=== PATIENT | female | born 1965 | race Caucasian/White ===

== ENCOUNTER → 2018-01-02 | Outpatient (REF) | payer MEDICARE, MEDICAID | LOC: M SFHCLERA 16:17 | DX: R35.0 Frequency of micturition (principal) | CPT/HCPCS: 87086 ==

== ENCOUNTER → 2018-02-21 | Outpatient (REF) | payer MEDICARE, MEDICAID ==
[2018-02-21 21:47] LABS: ESTIMATED AVERAGE GLUCOSE 111 MG/DL (60-110); HEMOGLOBIN A1c 5.5 %
== END ==
LOC: M LAB REF 20:12
DX: Z13.1 Encounter for screening for diabetes mellitus (principal); I10 Essential (primary) hypertension; M79.7 Fibromyalgia; Z79.899 Other long term (current) drug therapy; Z23 Encounter for immunization
CPT/HCPCS: 83036

== ENCOUNTER 2018-04-04 10:18 | Day surgery (SDC) | payer MEDICARE, MEDICAID ==
[2018-04-04] MEDS: NS 1,000 ML IV (10:45)
[2018-04-04] MEDS ORDERED: PROPOFOL 200 MG/20 ML VIAL As Ordered ×2 (10:59→12:03)
[2018-04-04] MEDS ORDERED: LIDOCAINE 2% INJ 100 MG/5 ML SDV (FOR ANES.) As Ordered (10:59)
== END 2018-04-04 12:40 | disposition home or self-care (01) ==
LOC: M OPP 10:18
DX: Z12.11 Encounter for screening for malignant neoplasm of colon (principal); K64.0 First degree hemorrhoids; K57.30 Diverticulosis of large intestine without perforation or abscess without bleeding; D12.8 Benign neoplasm of rectum; D12.5 Benign neoplasm of sigmoid colon; I10 Essential (primary) hypertension; E78.5 Hyperlipidemia, unspecified; M19.90 Unspecified osteoarthritis, unspecified site; F41.9 Anxiety disorder, unspecified; Z80.0 Family history of malignant neoplasm of digestive organs; Z79.899 Other long term (current) drug therapy; Z87.891 Personal history of nicotine dependence; Z88.1 Allergy status to other antibiotic agents; Z88.2 Allergy status to sulfonamides
CPT/HCPCS: 45385

== ENCOUNTER → 2018-06-30 | Outpatient (CLI) | payer MEDICARE, MEDICAID ==
[~2018-06-30] MED LIST: *MAYHAVE; /ACETCOD3T; ADVAIR100 INHALATION; AMLO5TAB6 PO; ASTELIN NASAL; BENA10TA6 PO; BUSPAR15 PO; CLARITIN10 PO; CYMBALTA30 PO; EFFEXORXL1 PO; FLAGYL500 PO; FLEXERIL10 PO; LIDODERM TOPICAL; LYRICA25 PO; MACROBID PO; MELA5TAB20 PO; MULTCAP PO; NASONEX; NASONEX NASAL; SUDAFED30 PO; TRAZODON10 PO; TRAZODON15 PO; VICO5TAB; VITA100066 PO; ZOCO40TA; ZOCOR40 PO; [UNRECOGNIZED DRUG - OTHER] TOPICAL; [UNRECOGNIZED DRUG - OTHER] VAGINAL
--- NOTE | 2018-07-02 11:51 | REP ---
MRI LEFT ANKLE WITHOUT CONTRAST: 06/30/2018. COMPARISON: X-ray ankle and foot 06/06/2018. CLINICAL HISTORY: Rule out Haney's neuropathy. A prior history of melanoma right thigh. TECHNIQUE: Coronal fat suppressed T2, axial T1 with fat suppressed T2 and sagittal T1 with T2 STIR sequences provided. FINDINGS: The course of the inferior calcaneal nerve is followed medial to laterally between the abductor hallicis muscle and medial calcaneal tuberosity. The muscle signal of the abductor digiti minimi muscle as well as that of the flexor digitorum brevis and quadratus plantae muscles is normal throughout. Flexor hallucis muscle signal also normal on T2 and T1 sequences. No atrophy or hyperintense signal changes. The other muscles about the ankle and hind foot were unremarkable. Some minor increased signal in the posterior inferior calcaneus near the plantar fascia insertion. I do not see significant edema or fluid collection along the plantar fascia with only minimal evidence for plantar fasciitis. No marrow signal abnormality in the calcaneus and talus. Mortise joint was symmetric and preserved. There are two screws in the distal fibula with magnetic susceptibility artifact limiting evaluation. The signal of the distal fibula. There is no avulsion at the distal lateral malleolus. The PT, FDL, FHL, PB/PL, AT, EDL EHL tendons along with the Achilles tendon are all without any acute signal abnormality. The anterior tibiofibular, anterior talofibular, posterior talofibular ligaments are intact. Calcaneofibular ligament shows some strain. Deltoid ligament intact. IMPRESSION: 1. I do not see any muscular signal abnormality to suggest Haney neuropathy. 2. There is minimal plantar fasciitis with some minor signal changes near the insertion and slight edema in the bone adjacent to the plantar fascial insertion but no significant fluid collection. 3. No bone bruise or fracture. The tendons about the ankle and ligaments are all grossly intact except for some mild strain of the calcaneofibular ligament. Electronically Signed by El Harris MD 07/04/2018 11:00 A
== END ==
LOC: M RAD 16:51
PROVIDERS: ATTEND Orthopaedic Surgery Sports Medicine
DX: M19.072 Primary osteoarthritis, left ankle and foot (principal)

== ENCOUNTER → 2018-08-02 | Outpatient (REF) | payer MEDICARE, MEDICAID ==
[2018-08-02 18:59] LABS: BASO # 0.1 10^3/uL (0.0-0.2); BASO % 0.9 % (0.0-1.0); EOS # 0.1 10^3/uL (0.0-0.50); EOS % 0.6 % (0.0-3.0); HEMATOCRIT 43.9 % (36.0-47.0); HEMOGLOBIN 14.6 g/dl (12.0-15.5); LYMPH # 2.7 10^3/uL (1.5-4.5); LYMPH % 29.2 % (24.0-44.0); MEAN CORPUSCULAR HEMOGLOBIN 30.4 pg (27.0-33.0); MEAN CORPUSCULAR HGB CONC 33.3 g/dl (32.0-36.5); MEAN CORPUSCULAR VOLUME 91.3 fl (80.0-96.0); MONO % 10.4 % (0.0-5.0); NEUTROPHILS # 5.5 10^3/uL (1.8-7.7); NEUTROPHILS % 58.6 % (36.0-66.0); PLATELET COUNT, AUTOMATED 336 10^3/uL (150-450); RED BLOOD COUNT 4.81 10^6/uL (4.00-5.40); WHITE BLOOD COUNT 9.3 10^3/uL (4.0-10.0)
[2018-08-02 19:16] LABS: HEMOGLOBIN A1c 5.7 %
[2018-08-02 19:26] LABS: ALBUMIN 4.1 GM/DL (3.2-5.2); ALT/SGPT 41 U/L (12-78); BILIRUBIN,TOTAL 0.7 MG/DL (0.2-1.0); BLOOD UREA NITROGEN 12 MG/DL (7-18); CALCIUM LEVEL 9.3 MG/DL (8.5-10.1); CARBON DIOXIDE LEVEL 27 MEQ/L (21-32); CHLORIDE LEVEL 102 MEQ/L (98-107); CHOLESTEROL LEVEL 260 MG/DL (<200); CREATININE FOR GFR 0.74 MG/DL (0.55-1.30); FOLATE 10.8 NG/ML; FREE T4 0.95 NG/DL (0.76-1.46); GLOMERULAR FILTRATION RATE > 60.0 (>51); GLUCOSE, FASTING 76 MG/DL (70-100); HDL CHOLESTEROL 42 MG/DL (>40); MAGNESIUM LEVEL 2.2 MG/DL (1.8-2.4); NON-HDL-C 218 MG/DL; PHOSPHORUS LEVEL 3.7 MG/DL (2.5-4.9); POTASSIUM SERUM 4.2 MEQ/L (3.5-5.1); SODIUM LEVEL 138 MEQ/L (136-145); TOTAL PROTEIN 7.5 GM/DL (6.4-8.2); TRIGLYCERIDES LEVEL 513 MG/DL (<150); VITAMIN B12 LEVEL 506 PG/ML
[2018-08-03 10:55] LABS: HEPATITIS B SURFACE ANTIGEN NEGATIVE (NEGATIVE)
[2018-08-03 11:20] LABS: HEPATITIS C VIRUS ABY INDEX 0.3 INDEX (<0.8)
[2018-08-03 11:21] LABS: HEPATITIS B CORE ANTIBODY IGM NEGATIVE (NEGATIVE)
[2018-08-03 11:23] LABS: HEPATITIS A ANTIBODY IGM NEGATIVE (NEGATIVE)
== END ==
LOC: M SFHCLERA 14:01
PROVIDERS: ATTEND Family Medicine
DX: R94.5 Abnormal results of liver function studies (principal); I10 Essential (primary) hypertension; F10.20 Alcohol dependence, uncomplicated; M25.432 Effusion, left wrist; F41.8 Other specified anxiety disorders; Z85.820 Personal history of malignant melanoma of skin

== ENCOUNTER → 2018-08-03 | Outpatient (REF) | payer MEDICARE, MEDICAID ==
[~2018-08-03] MED LIST changes: -/ACETCOD3T; +ACET1TAB16
[2018-08-03 20:57] LABS: ETHYL ALCOHOL (ETHANOL) < 0.003 % (0.000-0.010)
[2018-08-03 21:09] LABS: TOTAL 25(OH) VITAMIN D 18.7 NG/ML (30.0-100.0)
[2018-08-05 08:20] LABS: LDL DIRECT 175 mg/dL (0-99)
== END ==
LOC: M SFHCLERA 16:51
PROVIDERS: ATTEND Family Medicine
DX: F10.20 Alcohol dependence, uncomplicated (principal); E78.5 Hyperlipidemia, unspecified; E55.9 Vitamin D deficiency, unspecified; E66.9 Obesity, unspecified; Z68.36 Body mass index [BMI] 36.0-36.9, adult
CPT/HCPCS: 82306; 83721; G0463; G0480

== ENCOUNTER → 2018-08-16 | Outpatient (CLI) | payer MEDICARE, MEDICAID ==
--- NOTE | 2018-08-16 10:00 | REP ---
Abdominal right upper quadrant ultrasound for elevated liver function tests: Comparison is 05/13/2010. There is no cholelithiasis, gallbladder wall thickening or pericholecystic fluid. There is no intrahepatic or extrahepatic biliary duct dilatation. The common biliary duct measures 6.1 mm in diameter. The hepatic parenchyma demonstrates mild to moderate echogenicity compatible with hepato steatosis. There are no hepatic masses. The visualized hepatic parenchyma is unremarkable. The right kidney measures 11.7 x 6.0 x 5.8 cm and is normal size. There is no right renal calculus or hydronephrosis. There is no right renal solid or cystic mass. The visualized upper abdominal aorta is unremarkable. There is no right upper quadrant ascites. Impression: Hepato steatosis. There are no hepatic masses. Otherwise, essentially negative abdominal right upper quadrant ultrasound. Electronically Signed by Khurram Parekh MD 08/16/2018 09:51 A
--- NOTE | 2018-08-16 11:44 | REP ---
Soft tissue ultrasound of the dorsal left wrist for a palpable lump: There is no focal cyst or fluid collection in the area of the palpable lump of the left wrist dorsally. There is a thickened muscle measuring approximate 5-6 cm in length. There appears to represent the palpable lump. Ultrasonography of the right wrist identifies a similar muscle that is not quite as thickened. Impression: The palpable lump corresponds to a a muscle in the distal dorsal left forearm and wrist. There is no focal fluid collection, cyst or mass. Electronically Signed by Khurram Parekh MD 08/16/2018 11:35 A
== END ==
LOC: M RAD 08:48
PROVIDERS: ATTEND Family Medicine
DX: M25.432 Effusion, left wrist (principal)

== ENCOUNTER → 2018-09-13 | Outpatient (REF) | payer MEDICARE, MEDICAID | LOC: M SFHCLERA 13:21 | PROVIDERS: ATTEND Family Medicine | DX: R30.0 Dysuria (principal) ==

== ENCOUNTER → 2023-07-19 | Outpatient (CLI) | payer OTHER, MEDICAID ==
[~2023-07-19] MED LIST changes: +AMLO1TAB24 PO; -AMLO5TAB6 PO; -BENA10TA6 PO; +BENA1TAB24 PO; +THERTAB52 PO; +VITA100093 PO
[2023-07-19 14:32] LABS: BASO # 0.1 10^3/uL (0.0-0.2); BASO % 1.2 % (0.0-1.0); EOS # 0.1 10^3/uL (0.0-0.5); EOS % 1.4 % (0.0-3.0); HEMATOCRIT 44.4 % (36.0-47.0); HEMOGLOBIN 15.1 g/dl (12.0-15.5); LYMPH % 38.6 % (24.0-44.0); MEAN CORPUSCULAR HEMOGLOBIN 31.3 pg (27.0-33.0); MEAN CORPUSCULAR VOLUME 92.1 fl (80.0-96.0); MONO # 0.9 10^3/uL (0.0-0.8); MONO % 10.9 % (2.0-8.0); NEUTROPHILS # 3.7 10^3/uL (1.5-8.5); NEUTROPHILS % 47.6 % (36.0-66.0); PLATELET COUNT, AUTOMATED 275 10^3/uL (150-450); RED BLOOD COUNT 4.82 10^6/uL (4.00-5.40); WHITE BLOOD COUNT 7.8 10^3/uL (4.0-10.0)
[2023-07-19 14:57] LABS: HEMOGLOBIN A1c 5.4 % (4.0-6.0)
[2023-07-19 15:07] LABS: ALBUMIN 3.8 G/DL (3.2-5.2); ALKALINE PHOSPHATASE 67 U/L (46-116); ALT/SGPT 25 U/L (7.0-40); AST/SGOT 14 U/L (<34); BILIRUBIN,TOTAL 1.1 MG/DL (0.3-1.2); BLOOD UREA NITROGEN 17 MG/DL (9-23); CALCIUM LEVEL 9.3 MG/DL (8.3-10.6); CARBON DIOXIDE LEVEL 27 MMOL/L (20-31); CHLORIDE LEVEL 104 MMOL/L (98-107); CHOLESTEROL LEVEL 231 MG/DL (<200); CHOLESTEROL RISK RATIO 4.21 (<5); CREATININE FOR GFR 0.74 MG/DL (0.55-1.30); FREE T4 0.94 NG/DL (0.89-1.76); GLOMERULAR FILTRATION RATE > 60.0 (>45); GLUCOSE, FASTING 91 MG/DL (74-106); HDL CHOLESTEROL 54.8 MG/DL (>40); LDL CHOLESTEROL 139.2 MG/DL (<100); NON-HDL-C 176.2 MG/DL; POTASSIUM SERUM 4.3 MMOL/L (3.5-5.1); SODIUM LEVEL 138 MMOL/L (136-145); THYROID STIMULATING HORMONE 2.642 uIU/ML (0.55-4.78); TOTAL PROTEIN 6.8 G/DL (5.7-8.2); TRIGLYCERIDES LEVEL 185 MG/DL (<150)
[2023-07-19 15:08] LABS: TOTAL 25(OH) VITAMIN D 29.4 NG/ML (20.0-100.0)
[2023-07-19 15:09] LABS: FOLATE > 24.0 NG/ML (>5.4); VITAMIN B12 LEVEL 439 PG/ML (211-911)
== END ==
LOC: M LAB 13:50
PROVIDERS: ATTEND Physician Assistant
DX: F10.10 Alcohol abuse, uncomplicated (principal); E78.00 Pure hypercholesterolemia, unspecified

== ENCOUNTER → 2023-08-26 | Outpatient (CLI) | payer OTHER, MEDICAID | LOC: M WHC 13:53 | PROVIDERS: ATTEND Physician Assistant | DX: Z12.31 Encounter for screening mammogram for malignant neoplasm of breast (principal) ==

== ENCOUNTER 2023-12-22 11:19 | Day surgery (SDC) | payer OTHER, MEDICAID ==
[~2023-12-22] VITALS: Ht 167.6 cm; Wt 102.4 kg
[~2023-12-22 11:19] MED LIST changes: +ROSU5TAB40 PO
[2023-12-22] MEDS: NS 1,000 ML IV ONE (11:42)
[2023-12-22] MEDS ORDERED: propofoL 200 MG/20 ML VIAL As Ordered ONE (12:13)
[2023-12-22 13:17] VITALS: BP 133/74; O2SAT 96
== END 2023-12-22 13:18 | disposition home or self-care (01) ==
LOC: M OPP 11:19
PROVIDERS: ATTEND Internal Medicine Gastroenterology
DX: Z86.010 Personal history of colon polyps (principal); Z80.0 Family history of malignant neoplasm of digestive organs; D12.6 Benign neoplasm of colon, unspecified; K64.0 First degree hemorrhoids; Z79.02 Long term (current) use of antithrombotics/antiplatelets; Z79.899 Other long term (current) drug therapy; Z88.2 Allergy status to sulfonamides

== ENCOUNTER → 2024-03-09 | Outpatient (REF) | payer OTHER, MEDICAID ==
[2024-03-09 18:40] LABS: ALBUMIN 3.7 G/DL (3.2-5.2); ALKALINE PHOSPHATASE 76 U/L (35-104); ALT/SGPT 28 U/L (7.0-40); AST/SGOT 14 U/L (<34); BILIRUBIN,TOTAL 0.6 MG/DL (0.3-1.2); BLOOD UREA NITROGEN 14 MG/DL (9-23); CALCIUM LEVEL 9.8 MG/DL (8.3-10.6); CARBON DIOXIDE LEVEL 26 MMOL/L (20-31); CHLORIDE LEVEL 109 MMOL/L (98-107); CHOLESTEROL LEVEL 196 MG/DL (<200); CHOLESTEROL RISK RATIO 3.55 (<5); CREATININE FOR GFR 0.74 MG/DL (0.55-1.30); GLOMERULAR FILTRATION RATE > 60.0 (>45); GLUCOSE, FASTING 92 MG/DL (74-106); HDL CHOLESTEROL 55.1 MG/DL (>40); LDL CHOLESTEROL 105.1 MG/DL (<100); NON-HDL-C 140.9 MG/DL; POTASSIUM SERUM 4.5 MMOL/L (3.5-5.1); SODIUM LEVEL 140 MMOL/L (136-145); TRIGLYCERIDES LEVEL 179 MG/DL (<150)
[2024-03-09 18:53] LABS: HEMOGLOBIN A1c 5.6 % (4.0-6.0)
== END ==
LOC: M SFHCLERA 09:31
DX: R73.02 Impaired glucose tolerance (oral) (principal); E55.9 Vitamin D deficiency, unspecified; E78.2 Mixed hyperlipidemia

== ENCOUNTER → 2024-09-12 | Outpatient (CLI) | payer OTHER, MEDICAID ==
[~2024-09-12] MED LIST changes: -ROSU5TAB40 PO; +ROSU5TAB49 PO
== END ==
LOC: M WUC 12:33
DX: R05.3 Chronic cough (principal)

== ENCOUNTER → 2024-12-07 | Outpatient (CLI) | payer OTHER, MEDICAID ==
[~2024-12-07] MED LIST changes: +LOSA50TA28 PO
== END ==
LOC: M CARPUL 09:40
PROVIDERS: ATTEND Physician Assistant
DX: R06.02 Shortness of breath (principal)

== ENCOUNTER → 2024-12-19 | Outpatient (CLI) | payer OTHER, MEDICAID ==
[~2024-12-19] MED LIST changes: +METHACHOLINE KIT (6 VIAL.NEB PREMIX) INH ONE
== END ==
LOC: M CARPUL 09:42
PROVIDERS: ATTEND Physician Assistant
DX: R06.02 Shortness of breath (principal)
CPT/HCPCS: 94070; 95070; J7674

== ENCOUNTER 2025-01-04 11:00 | Day surgery (SDC) | payer OTHER, MEDICAID ==
[~2025-01-04] VITALS: Ht 167.6 cm; Wt 104.2 kg
[~2025-01-04 11:00] MED LIST changes: -METHACHOLINE KIT (6 VIAL.NEB PREMIX) INH ONE
[2025-01-04] MEDS ORDERED: CETACAINE SPRAY 5 GM As Ordered ONE (13:03)
[2025-01-04 13:41] VITALS: BP 145/74; O2SAT 97
== END 2025-01-04 13:52 | disposition home or self-care (01) ==
LOC: M OPP 11:00
PROVIDERS: ATTEND Surgery
DX: K44.9 Diaphragmatic hernia without obstruction or gangrene (principal); K21.00 Gastro-esophageal reflux disease with esophagitis, without bleeding; K22.2 Esophageal obstruction; R13.10 Dysphagia, unspecified; Z88.2 Allergy status to sulfonamides; Z91.048 Other nonmedicinal substance allergy status; Z79.899 Other long term (current) drug therapy
CPT/HCPCS: 43239; 88305; J3010

== ENCOUNTER → 2025-02-06 | Outpatient (REF) | payer OTHER, MEDICAID ==
[2025-02-06 18:31] LABS: BASO # 0.1 10^3/uL (0.0-0.2); BASO % 0.9 % (0.0-1.0); EOS # 0.1 10^3/uL (0.0-0.5); EOS % 1.2 % (0.0-3.0); LYMPH # 2.5 10^3/uL (1.5-5.0); LYMPH % 33.0 % (24.0-44.0); MONO # 0.8 10^3/uL (0.0-0.8); MONO % 10.1 % (2.0-8.0); NEUTROPHILS # 4.2 10^3/uL (1.5-8.5); NEUTROPHILS % 54.5 % (36.0-66.0); PLATELET COUNT, AUTOMATED 297 10^3/uL (150-450)
[2025-02-06 18:53] LABS: ESTIMATED AVERAGE GLUCOSE 111.0 MG/DL (60-110)
[2025-02-06 19:05] LABS: ALT/SGPT 27.0 U/L (7.0-40); AST/SGOT 21.0 U/L (<34); CALCIUM LEVEL 9.3 MG/DL (8.3-10.6); CARBON DIOXIDE LEVEL 28.0 MMOL/L (20-31); CHLORIDE LEVEL 103.0 MMOL/L (98-107); CHOLESTEROL LEVEL 196.0 MG/DL (<200); CHOLESTEROL RISK RATIO 3.6 (<5); CREATININE FOR GFR 0.82 MG/DL (0.55-1.30); GLOMERULAR FILTRATION RATE 81.3 (>45); LDL CHOLESTEROL 109.3 MG/DL (<100); NON-HDL-C 141.7 MG/DL; POTASSIUM SERUM 4.3 MMOL/L (3.5-5.1); SODIUM LEVEL 136.0 MMOL/L (136-145); TRIGLYCERIDES LEVEL 162.0 MG/DL (<150)
[2025-02-06 19:06] LABS: TOTAL 25(OH) VITAMIN D 42.0 NG/ML (20.0-100.0)
== END ==
LOC: M SFHCLERA 11:33
DX: F10.10 Alcohol abuse, uncomplicated (principal); E78.2 Mixed hyperlipidemia; I10 Essential (primary) hypertension; E55.9 Vitamin D deficiency, unspecified; Z79.899 Other long term (current) drug therapy

== ENCOUNTER → 2025-02-26 | Outpatient (REF) | payer OTHER, MEDICAID ==
[~2025-02-26] MED LIST changes: +ARNU1INH; +FAMO40TA3 PO; +GABA-284 PO
[2025-02-26 18:04] LABS: BASO # 0.1 10^3/uL (0.0-0.2); BASO % 1.0 % (0.0-1.0); EOS # 0.1 10^3/uL (0.0-0.5); EOS % 0.8 % (0.0-3.0); LYMPH # 2.4 10^3/uL (1.5-5.0); LYMPH % 33.0 % (24.0-44.0); MONO # 0.8 10^3/uL (0.0-0.8); MONO % 11.3 % (2.0-8.0); NEUTROPHILS # 3.9 10^3/uL (1.5-8.5); NEUTROPHILS % 53.8 % (36.0-66.0); PLATELET COUNT, AUTOMATED 304 10^3/uL (150-450)
[2025-02-26 18:22] LABS: ALT/SGPT 35 U/L (7.0-40); AST/SGOT 27 U/L (<34); CALCIUM LEVEL 10.0 MG/DL (8.3-10.6); CARBON DIOXIDE LEVEL 29 MMOL/L (20-31); CHLORIDE LEVEL 104 MMOL/L (98-107); CREATININE FOR GFR 0.81 MG/DL (0.55-1.30); GLOMERULAR FILTRATION RATE 82.5 (>45); IRON (FE) 85 UG/DL (50-170); PERCENT SATURATION 25.6 % (13.2-45.0); POTASSIUM SERUM 4.7 MMOL/L (3.5-5.1); SODIUM LEVEL 142 MMOL/L (136-145); VITAMIN B12 LEVEL 627 PG/ML (211-911)
[2025-02-26 18:23] LABS: FREE T4 1.18 NG/DL (0.89-1.76)
== END ==
LOC: M SFHCLERA 11:17
PROVIDERS: ATTEND Family Medicine
DX: Z01.818 Encounter for other preprocedural examination (principal); M79.671 Pain in right foot; M79.672 Pain in left foot; G62.9 Polyneuropathy, unspecified; Z79.899 Other long term (current) drug therapy

== ENCOUNTER 2025-03-05 08:42 | Day surgery (SDC) | payer OTHER, MEDICAID ==
[~2025-03-05] VITALS: Ht 167.6 cm; Wt 102.1 kg
[~2025-03-05 08:42] MED LIST changes: +LR 1,000 ML IV SCH; +MIDAZOLAM INJ 2 MG/2 ML VIAL As Ordered ONE
[2025-03-05] MEDS: PHENYLEPHRINE 2.5% OPHTH SOL 2ML OS SCH (09:30)
[2025-03-05] MEDS: TETRACAINE 0.5% OPHTH SOLN 4ML OS SCH (09:30)
[2025-03-05] MEDS: FLURBIPROFEN 0.03% OPHTH SOLN 2.5 ML OS SCH (09:30)
[2025-03-05] MEDS: CYCLOPENTOLATE 1% OPHTH SOLN 2 ML BTL OS SCH (09:30)
[2025-03-05] MEDS: CEFUROXIME 1 MG/0.1 ML INTRACAMERAL INJ As Ordered ONE (10:56)
[2025-03-05] MEDS: LIDOCAINE 1% SDV 5 ML VIAL As Ordered ONE (10:56)
[2025-03-05 11:14] VITALS: BP 119/82; TEMP 96.9; O2SAT 96
== END 2025-03-05 11:28 | disposition home or self-care (01) ==
LOC: M SDC 08:42
PROVIDERS: ATTEND Ophthalmology
DX: H25.12 Age-related nuclear cataract, left eye (principal); I10 Essential (primary) hypertension; E78.00 Pure hypercholesterolemia, unspecified; K21.9 Gastro-esophageal reflux disease without esophagitis; J45.909 Unspecified asthma, uncomplicated; Z79.899 Other long term (current) drug therapy; Z79.51 Long term (current) use of inhaled steroids; Z88.2 Allergy status to sulfonamides; Z85.820 Personal history of malignant melanoma of skin; G62.9 Polyneuropathy, unspecified
CPT/HCPCS: 66984; J0697; J2250; J3010; V2632

== ENCOUNTER 2025-05-07 09:06 | Day surgery (SDC) | payer OTHER, MEDICAID ==
[~2025-05-07] VITALS: Ht 167.6 cm; Wt 101.6 kg
[~2025-05-07 09:06] MED LIST changes: -ARNU1INH; +ARNU1INH INH; -MIDAZOLAM INJ 2 MG/2 ML VIAL As Ordered ONE
[2025-05-07] MEDS ORDERED: MIDAZOLAM INJ 2 MG/2 ML VIAL As Ordered ONE (09:22)
[2025-05-07] MEDS: FLURBIPROFEN 0.03% OPHTH SOLN 2.5 ML OD SCH (10:14)
[2025-05-07] MEDS: CYCLOPENTOLATE 1% OPHTH SOLN 2 ML BTL OD SCH (10:14)
[2025-05-07] MEDS: PHENYLEPHRINE 2.5% OPHTH SOL 2ML OD SCH (10:14)
[2025-05-07] MEDS: TETRACAINE 0.5% OPHTH SOLN 4ML OD SCH (10:14)
[2025-05-07] MEDS: CEFUROXIME 1 MG/0.1 ML INTRACAMERAL INJ As Ordered ONE (12:05)
[2025-05-07] MEDS: LIDOCAINE 1% SDV 5 ML VIAL As Ordered ONE (12:05)
[2025-05-07 12:14] VITALS: BP 149/79; TEMP 97.3; O2SAT 96
== END 2025-05-07 12:30 | disposition home or self-care (01) ==
LOC: M SDC 09:06
PROVIDERS: ATTEND Ophthalmology
DX: H25.11 Age-related nuclear cataract, right eye (principal); I10 Essential (primary) hypertension; J45.909 Unspecified asthma, uncomplicated; E78.00 Pure hypercholesterolemia, unspecified; Z79.899 Other long term (current) drug therapy; Z79.51 Long term (current) use of inhaled steroids; Z85.828 Personal history of other malignant neoplasm of skin; Z85.820 Personal history of malignant melanoma of skin; Z90.710 Acquired absence of both cervix and uterus; Z98.42 Cataract extraction status, left eye; Z98.51 Tubal ligation status; Z88.2 Allergy status to sulfonamides
CPT/HCPCS: 66984; J0697; J2250; J3010; V2632